=== PATIENT | male | born 1990 | race Asian ===

== ENCOUNTER 2019-11-19 20:18 | Emergency (ER) | payer BC, MEDICAID ==
[~2019-11-19] VITALS: Ht 170.2 cm; Wt 72.6 kg
--- NOTE | 2019-11-19 20:38 | NUR ---
ED Nurse Note: Pt ambulated to ED from home c/o "difficulty catching his breath" for several days, denies injury or any other symptoms, VSS spo2 99% on room air. Pt denies cough, sob or dyspnea. ERMD at bedside
--- NOTE | 2019-11-19 20:38 | Emergency Room Report ---
History of Present Illness General Chief Complaint: Dyspnea/Respdistress Source: Patient Present Illness HPI Patient is a 29-year-old male presents after increased difficulty with breathing. He reports having increased difficulty with air movement. He reports that increased nasal congestion as well as some moderate problem with respiratory efforts. Previously been healthy. Denies any regular medication use. 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 Patient denies any new swelling to his extremities. Allergies: Coded Allergies: No Known Allergies (Unverified , 11/19/19) COVID-19 Screening Contact w/high risk pt: No Recent Travel to affected area: No Experienced COVID-19 symptoms?: No COVID-19 Testing performed SENIOR INTERACTION DESIGNER: No Patient History Past Medical History: see triage record Reviewed Nursing Documentation: PMH: Agreed; PSxH: Agreed Nursing Documentation-PMH Past Medical History: No Stated History Review of Systems All Other Systems: negative except mentioned in HPI Physical Exam Vital Signs Date Time Temp Pulse Resp B/P (MAP) Pulse Ox O2 Delivery O2 Flow Rate FiO2 11/19/19 20:21 98.8 72 16 130/82 (98) 98 Room Air General Appearance: well appearing, no apparent distress, alert, GCS 15, non- toxic Head: normocephalic, atraumatic ENT: hearing grossly normal, normal voice, other - Nasal mucosal thickening no discharge Neck: full range of motion, supple Respiratory: normal inspection, lungs clear, no respiratory distress, speaking full sentences Cardiovascular #1: normal inspection, normal peripheral pulses, regular rate, rhythm Gastrointestinal: normal inspection, non tender, soft Musculoskeletal: normal inspection Neurologic: alert, motor strength/tone normal, barn hand III-XII nml as tested, oriented x3, normal gait Psychiatric: normal inspection, mood/affect normal Skin: normal inspection, normal color, no rash Medical Decision Making Diagnostic Impression: Primary Impression: Incomplete right bundle branch block Additional Impression: Reactive airway disease ER Course Present for increased congestion. Differential diagnosis include was not limited to seasonal allergies, coronavirus infection, reactive airway disease among others. Patient was noted to have a normal oxygen saturation without any evidence of respiratory difficulty at this time. EKG interpreted by me showed normal sinus rhythm with no acute ST or T wave changes. Chest x-ray 1 view showed no evidence of acute infiltrate. Patient appears to be stable for close outpatient follow-up. He was advised to have outpatient coronavirus testing and to self isolate. He is advised to return if worse or increased shortness of breath. He was given prescription for medications for symptomatic management. Last Vital Signs Date Time Temp Pulse Resp B/P (MAP) Pulse Ox O2 Delivery O2 Flow Rate FiO2 11/19/19 20:21 98.8 72 16 130/82 (98) 98 Room Air Status: improved Disposition: HOME, SELF-CARE Condition: Stable Scripts Albuterol Sulfate* (Albuterol Sulfate Hfa*) 8.5 Gm Hfa.aer.ad 2 PUFF INH Q6H, #1 INH Prov: John Wlals MD 11/19/19 Loratadine (CLARITIN) 10 Mg Tablet 10 MG ORAL DAILY, #30 TAB Prov: John Walls MD 11/19/19 John Walls MD Nov 19, 2019 20:38
[2019-11-19] MEDS ORDERED: ALBUTEROL SULF8.5 G1 INH (20:41)
[2019-11-19] MEDS ORDERED: CLARITIN10 MG ORAL (20:41)
--- NOTE | 2019-11-19 20:57 | Diagnostic Imaging Report ---
EXAM: XR Chest, 1 View CLINICAL HISTORY: SOB TECHNIQUE: Frontal view of the chest. COMPARISON: No relevant prior studies available. FINDINGS: Lungs: Unremarkable. No consolidation. Pleural space: Unremarkable. No pneumothorax. Heart: Unremarkable. No cardiomegaly. Mediastinum: Unremarkable. Bones/joints: Unremarkable. IMPRESSION: 1. No acute cardiopulmonary disease. 2. If there is continued concern recommend frontal and lateral chest radiographs or CT.
[2019-11-19 21:00] VITALS: BP 130/82
--- NOTE | 2019-11-19 21:00 | NUR ---
ER DISCHARGE NOTE: Patient is cleared to be discharged per ERMD, pt is aox4, on room air, with stable vital signs. pt was given dc and prescription instructions, pt was able to verbalize understanding, pt id band removed. pt is able to ambulate with steady gait. pt took all belongings.
== END 2019-11-19 21:00 | disposition home or self-care (01) ==
LOC: EMR 20:35
DX: I45.10 Unspecified right bundle-branch block (principal); J45.909 Unspecified asthma, uncomplicated
CPT/HCPCS: 71045; 93005; 99283